=== PATIENT | female | born 1985 | race Caucasian/White ===

== ENCOUNTER 2021-04-06 15:14 | Inpatient (IN) | payer OTHER ==
[~2021-04-06] VITALS: Ht 177.8 cm; Wt 90.7 kg
[2021-04-24] MEDS ORDERED: PRENATAL TABLE1 EAC1 PO (09:04)
== END 2021-04-26 12:22 | disposition home or self-care (01) | DRG 768 ==
LOC: OB/GYN 15:14 → LDR 04-24 06:14 → OB/GYN 04-24 21:12
PROVIDERS: ADMIT Obstetrics & Gynecology Maternal & Fetal Medicine; ATTEND Obstetrics & Gynecology Maternal & Fetal Medicine
PROC: 10E0XZZ Delivery of Products of Conception, External Approach (ICD-10-PCS; principal; 2021-04-24)
PROC: 0DQR0ZZ Repair Anal Sphincter, Open Approach (ICD-10-PCS; 2021-04-24)
PROC: 0W8NXZZ Division of Female Perineum, External Approach (ICD-10-PCS; 2021-04-24)
PROC: 3E033VJ Introduction of Other Hormone into Peripheral Vein, Percutaneous Approach (ICD-10-PCS; 2021-04-24)
PROC: 4A1HXFZ Monitoring of Products of Conception, Cardiac Rhythm, External Approach (ICD-10-PCS; 2021-04-24)
DX: O70.21 Third degree perineal laceration during delivery, IIIa (principal); O77.0 Labor and delivery complicated by meconium in amniotic fluid; O48.0 Post-term pregnancy; Z37.0 Single live birth; Z3A.41 41 weeks gestation of pregnancy

== ENCOUNTER 2021-04-09 15:22 | Outpatient (CLI) | payer OTHER | END 2021-04-09 15:45 | disposition home or self-care (01) | LOC: NST 15:22 | PROVIDERS: ATTEND Obstetrics & Gynecology Maternal & Fetal Medicine | DX: Z34.83 Encounter for supervision of other normal pregnancy, third trimester (principal) ==

== ENCOUNTER 2021-04-13 12:46 | Outpatient (CLI) | payer OTHER | END 2021-04-13 13:35 | disposition home or self-care (01) | LOC: NST 12:46 | PROVIDERS: ATTEND Obstetrics & Gynecology Maternal & Fetal Medicine | DX: Z34.83 Encounter for supervision of other normal pregnancy, third trimester (principal) ==

== ENCOUNTER 2021-04-16 11:15 | Outpatient (CLI) | payer OTHER | END 2021-04-16 12:03 | disposition home or self-care (01) | LOC: NST 11:15 | PROVIDERS: ATTEND Obstetrics & Gynecology Maternal & Fetal Medicine | DX: Z34.83 Encounter for supervision of other normal pregnancy, third trimester (principal) ==

== ENCOUNTER 2021-04-19 16:33 | Outpatient (CLI) | payer OTHER | END 2021-04-19 16:53 | disposition home or self-care (01) | LOC: NST 16:33 | PROVIDERS: ATTEND Obstetrics & Gynecology Maternal & Fetal Medicine | DX: O48.0 Post-term pregnancy (principal) ==

== ENCOUNTER 2021-04-21 10:24 | Outpatient (CLI) | payer OTHER | END 2021-04-21 11:00 | disposition home or self-care (01) | LOC: NST 10:24 | PROVIDERS: ATTEND Obstetrics & Gynecology Maternal & Fetal Medicine | DX: Z34.83 Encounter for supervision of other normal pregnancy, third trimester (principal) ==

== ENCOUNTER 2021-04-23 09:28 | Outpatient (CLI) | payer OTHER ==
[2021-04-24] MEDS ORDERED: PRENATAL TABLE1 EAC1 PO (09:04)
== END 2021-04-23 10:28 | disposition home or self-care (01) ==
LOC: NST 09:28
PROVIDERS: ATTEND Obstetrics & Gynecology Maternal & Fetal Medicine
DX: O48.0 Post-term pregnancy (principal)

== ENCOUNTER 2024-08-16 12:05 | Outpatient (CLI) | payer OTHER ==
[~2024-08-16 12:05] MED LIST: PRENATAL TABLE1 EAC1 PO
== END 2024-08-16 13:02 | disposition home or self-care (01) ==
LOC: NST 12:05
PROVIDERS: ATTEND Obstetrics & Gynecology
DX: Z34.83 Encounter for supervision of other normal pregnancy, third trimester (principal)

== ENCOUNTER 2024-08-17 12:39 | Inpatient (IN) | payer OTHER ==
[2024-08-17] MEDS ORDERED: OXYTOCIN 20 UNITS/1000ML RL PIGGYBAG IV ONE (23:08)
[2024-08-17] MEDS ORDERED: ERYTHROMYCIN BASE OPHT 1GM EACH TUBE OP ONE (23:08)
[2024-08-17] MEDS ORDERED: LIDOCAINE HCL 1% 10ML VIAL ONE (23:09)
[2024-08-17] MEDS ORDERED: CHLORHEXIDINE GLUCONATE 120 ML BOTTLE TOP ONE (23:09)
[2024-08-17 23:42] LABS: HEMATOCRIT 37.1 % (36.0-45.00); MEAN CELL VOLUME 87.7 fL (80.00-100.00); MEAN CORPUSCULAR HEMOGLOBIN 30.8 pg (27.00-32.0); MEAN CORPUSCULAR HGB CONC 35.1 g/dl (32.0-36.0); PLATELET COUNT 290 K/uL (150-450); RED BLOOD COUNT 4.23 M/uL (4.00-6.00); RED CELL DISTRIBUTION WIDTH 13.8 % (11.5-14.5)
[2024-08-17 23:55] LABS: INR < 0.93; PARTIAL THROMBOPLASTIN TIME 29.3 SECONDS (22.0-34.0); PROTHROMBIN TIME 9.8 SECONDS (9.0-11.5)
[2024-08-18] MEDS ORDERED: DOCUSATE SODIUM 100MG CAP PO SCH (00:33)
[2024-08-18] MEDS ORDERED: OxyCODONE HCL 5 MG TABLET (ROXICODONE) PO SCH (00:33)
[2024-08-18 00:36] VITALS: BP 120/67
[2024-08-18] MEDS ORDERED: OXYTOCIN 1,000 ML IV SCH ×2 (00:45→03:00)
[2024-08-18] MEDS ORDERED: CHLORHEXIDINE GLUCONATE 120 ML BOTTLE TP SCH (00:45)
[2024-08-18 01:01] VITALS: BP 123/61
[2024-08-18] MEDS ORDERED: OXYTOCIN 20 UNITS/1000ML RL PIGGYBAG IV ONE ×2 (01:09→01:49)
[2024-08-18 01:16] VITALS: BP 129/63
[2024-08-18 02:01] VITALS: BP 115/56
[2024-08-18] MEDS ORDERED: DOCUSATE SODIUM 100MG CAP PO ONE ×2 (02:56→10:21)
[2024-08-18] MEDS ORDERED: LIDOCAINE HCL 1% 10ML VIAL IJ ONE (03:00)
[2024-08-18] MEDS ORDERED: ERYTHROMYCIN BASE OPHT 1GM EACH TUBE OP ONE (03:00)
[2024-08-18] MEDS ORDERED: KETOROLAC TROMETHAMINE 10 MG TABLET PO SCH (06:00)
[2024-08-18 08:55] VITALS: BP 107/68
[2024-08-18] MEDS ORDERED: KETOROLAC TROMETHAMINE 10 MG TABLET PO ONE (10:21)
[2024-08-18 10:46] LABS: ALBUMIN 2.7 gm/dL (3.4-5.0); BILIRUBIN TOTAL 0.22 mg/dL (0.3-1.2); CALCIUM 8.8 mg/dL (8.5-10.1); CREATININE SERUM 0.44 mg/dL (0.55-1.02); GFR 160.03; GLOBULINA 3.4 G/DL (2.4-3.5); POTASSIUM 3.92 mEq/L (3.5-5.1); TOTAL PROTEIN 6.1 gm/dL (6.4-8.2)
[2024-08-18 16:24] VITALS: BP 107/69
[2024-08-19] VITALS: BP 115/76
[2024-08-19 09:25] VITALS: BP 102/61
[2024-08-19 16:15] VITALS: BP 99/60
[2024-08-20 00:49] VITALS: BP 93/63
[2024-08-20 09:27] VITALS: BP 101/65
== END 2024-08-20 12:13 | disposition home or self-care (01) | DRG 807 ==
LOC: OB/GYN 12:39 → LDR 08-18 00:29 → OB/GYN 08-18 01:59
PROVIDERS: ADMIT Obstetrics & Gynecology Maternal & Fetal Medicine; ATTEND Obstetrics & Gynecology Maternal & Fetal Medicine
PROC: 10E0XZZ Delivery of Products of Conception, External Approach (ICD-10-PCS; principal; 2024-08-18)
PROC: 0KQM0ZZ Repair Perineum Muscle, Open Approach (ICD-10-PCS; 2024-08-18)
PROC: 0W8NXZZ Division of Female Perineum, External Approach (ICD-10-PCS; 2024-08-18)
PROC: 3E033VJ Introduction of Other Hormone into Peripheral Vein, Percutaneous Approach (ICD-10-PCS; 2024-08-18)
PROC: 4A1HXCZ Monitoring of Products of Conception, Cardiac Rate, External Approach (ICD-10-PCS; 2024-08-18)
DX: O70.1 Second degree perineal laceration during delivery (principal); Z37.0 Single live birth; Z3A.38 38 weeks gestation of pregnancy